=== PATIENT | female | born 1980 | race African-American/Black ===

== ENCOUNTER 2019-05-24 13:59 | Emergency (ER) | payer MEDICAID ==
[~2019-05-24] VITALS: Ht 162.6 cm; Wt 72.0 kg
[~2019-05-24 13:59] MED LIST: AMLO10TA80 PO; FLUT1DIS
[2019-05-24] MEDS ORDERED: ALBUTEROL (0.083%) 2.5MG/3ML NEB HHN STA (16:13)
[2019-05-24] MEDS ORDERED: ACETAMINOPHEN WITH CODEINE 300/30MG TABLET PO ONE (16:15)
[2019-05-24] MEDS ORDERED: ACETAMINOPHEN WITH CODEINE 300/30MG TABLET PO NR (17:00)
[2019-05-24 17:20] VITALS: BP 119/74
== END 2019-05-24 18:27 | disposition home or self-care (01) ==
LOC: ER 13:59
DX: J02.9 Acute pharyngitis, unspecified (principal); I10 Essential (primary) hypertension; J45.909 Unspecified asthma, uncomplicated; Z90.710 Acquired absence of both cervix and uterus; Z88.6 Allergy status to analgesic agent; Z88.0 Allergy status to penicillin
CPT/HCPCS: 87070; 87430; 94640; 99283; J7611; Z7610